=== PATIENT | female | born 2000 | race Caucasian/White ===

== ENCOUNTER → 2020-10-05 | Outpatient (CLI) | payer SELFPAY | LOC: M LABSMTC 11:02 | PROVIDERS: ATTEND Pediatrics | DX: Z20.822 Contact with and (suspected) exposure to COVID-19 (principal) ==

== ENCOUNTER → 2020-10-12 | Outpatient (CLI) | payer SELFPAY | LOC: M LABSMTC 08:49 | PROVIDERS: ATTEND Pediatrics | DX: Z20.822 Contact with and (suspected) exposure to COVID-19 (principal) ==

== ENCOUNTER 2022-12-22 00:44 | Emergency (ER) | payer OTHER, SELFPAY ==
[~2022-12-22] VITALS: Ht 170.2 cm; Wt 94.2 kg
[2022-12-22 00:45] VITALS: BP 123/65
[2022-12-22] MEDS ORDERED: BREO1INH PO (00:51)
== END 2022-12-22 04:44 | disposition left against medical advice (07) ==
LOC: M ED 00:44
DX: J45.909 Unspecified asthma, uncomplicated (principal); Z53.21 Procedure and treatment not carried out due to patient leaving prior to being seen by health care provider